=== PATIENT | female | born 1955 | race Two or more races ===

== ENCOUNTER 2022-08-14 13:54 | Emergency (ER) | payer OTHER, MEDICARE, MEDICAID ==
[~2022-08-14] VITALS: Ht 154.9 cm; Wt 73.0 kg
[2022-08-14] MEDS ORDERED: IPRATROPIUM/ALBUTEROL 0.5-3(2.5)MG/3ML NEB HHN ONE (14:30)
[2022-08-14] MEDS ORDERED: PREDNISONE 20MG TABLET PO ONE (14:30)
[2022-08-14 15:48] LABS: BASOPHILS % 0.9 % (0.0-2.0); EOSINOPHILS % 3.8 % (0.0-5.0); HEMATOCRIT. 40.9 % (36.0-48.0); HEMOGLOBIN. 13.9 g/dL (12.0-16.0); LYMPHOCYTES % 35.7 % (20.0-50.0); MEAN CORPUSCULAR HEMOGLOBIN 30.7 pg (28.0-32.0); MEAN CORPUSCULAR VOLUME 90.1 fL (81.0-99.0); MEAN PLATELET VOLUME 7.9 fl (7.4-10.4); MONOCYTES % 7.1 % (2.0-8.0); NEUTROPHILS % 52.5 % (40.0-76.0); PLATELET 300 x1000/uL (130-400); RED BLOOD CELL COUNT 4.54 mill/uL (4.2-5.4); RED CELL DISTRIBUTION WIDTH 15.7 % (11.6-14.6)
[2022-08-14 15:56] LABS: PROTHROMBIN TIME 10.5 sec (9.6-11.0)
[2022-08-14 15:59] LABS: CHLORIDE 111 mEq/L (98-107)
[2022-08-14] MEDS ORDERED: PREDNISONE 20MG TABLET PO NR (17:00)
[2022-08-14] MEDS ORDERED: P50 MT (17:08)
[2022-08-14] MEDS ORDERED: ALBU6.7H3 INH (17:08)
[2022-08-14 17:30] VITALS: BP 143/82
== END 2022-08-14 17:46 | disposition home or self-care (01) ==
LOC: ER 13:54
DX: J40 Bronchitis, not specified as acute or chronic (principal)
CPT/HCPCS: 36415; 71045; 80053; 83880; 84484; 85025; 85610; 93005; 94640; 99285; J7512; Z7610